=== PATIENT | male | born 1975 | race Caucasian/White ===

== ENCOUNTER 2024-09-15 09:17 | Outpatient (REF) | payer OTHER, SELFPAY ==
--- NOTE | ~2024-09-15 | XR_ITS ---
CLINICAL HISTORY: M54.50 - Low back pain, unspecified 6 views lumbar spine Comparison: None provided Findings: The lumbar fusion hardware appears intact. There is significant disc space narrowing at L5-S1. Mild disc space throughout the remainder of the lumbar spine. No acute fracture or acute malalignment. Mild fecal retention throughout the colon. IMPRESSION: Postsurgical and degenerative changes. No definite acute process. This document has been electronically signed by: Matt Sommers MD on 09/15/2024 11:14:37
== END 2024-09-15 09:18 | disposition home or self-care (01) ==
LOC: HO.HMGCX 09:17
PROVIDERS: PCP Internal Medicine; Visit Provider Physician Assistant
DX: M54.50 Low back pain, unspecified (principal)
CPT/HCPCS: 72110

== ENCOUNTER 2024-09-15 09:17 | Outpatient (AMB) | payer OTHER, SELFPAY ==
--- OUTSIDE RECORDS SUMMARY | 2024-09-15 09:26 | XMS_ITS | Patient Health Record ---
Author Organization [facility] Address [address] [place] [address] Care Team Providers Care Multisensor Intelligence Officer Name Role Phone JoeEmanuel nielson Primary Care Provider [phone] Reason For Referral No Information Problems Problem Type SNOMED Code ICD Code Onset Dates Problem Status W/U Status Risk Notes Problem Ingrowing Nail (703.0) Active confirmed Plan Of Treatment Pending Test Test Name Order Date [id number] Plate 07/31/2012 Insurance Providers Payer Name Payer Address Payer Phone Subscriber Number Group Number Insured Name Patient Relationship to Insured Coverage Start Date Coverage End Date [facility] [id number] TAMI Johnson [id number] [phone] [id number] Lavon Beltran Self - patient is the insured Medical (General) History Surgical History Surgery Date(Month/Year) wrist surgery 03/27/2011
--- NOTE | 2024-09-15 09:33 | MHC.OFFWIV ---
Intake Vital Signs 09/15/24 09:36 Height 6 ft 3.5 in Weight 275 lb BMI 33.9 BP 130/80 Blood Pressure Location Lt brachial Position Sitting Pulse 52 Pulse Source Pulse Oximeter Temp 98 F Temp Source Oral Pulse Oximetry (%) 99 Oxygen Delivery Method Room Air Intake Visit Reasons: DATA ARCHITECT MANAGER Back pain, lower abdominal pain Intake Note: presents with right lower back pain 4 days. Also c/o left lower abdominal pain x1 day Allergies No Known Allergies Allergy (Mild, Verified 09/15/24 09:39) N/A Do you need a note to return to daycare/school/sports/work: Yes Return to daycare/school/sports/work/other note: work HPI HPI Comments History of Present Illness Details Patient is a 49-year-old male with a history of L4-L5 fusion approximately 10 years ago performed by a surgeon who is no longer practicing in this area but was working with Dr. rothman at [facility] at the time. He tells me that 4 days ago, he woke up with some low back pain and he noticed a little bruise in the center of his low back which is tender. He tried taking aspirin for the pain which did not help. He denies any injury or any heavy lifting. 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 He also tells me he has left lower abdominal pain starting and he has a history of diverticulosis and has had a flare of diverticulitis and this is exactly what it felt like when it started. He tells me he waited too long last time to get meds and it was very painful. He denies any fevers or diarrhea. He is asking for medication as it is a holiday weekend and he does not want it to get worse and have to go to the emergency department. Review of Systems Const All systems reviewed & are unremarkable except as noted in HPI and below Physical Exam Vital Signs: Last Vital Signs Temp 98 F 09/15/24 09:36 Pulse 52 09/15/24 09:36 BP 130/80 09/15/24 09:36 Pulse Ox 99 09/15/24 09:36 Oxygen Delivery Method Room Air 09/15/24 09:36 BMI result Body Mass Index 33.9 Const General: cooperative, healthy appearing and comfortable Orientation/consciousness: patient oriented x3 HEENT Head: Yes normal to inspection and Yes normocephalic General nose exam: Normal external nose present Face and sinus: Yes normal facial exam Eyes General: appearance normal, both eyes and all related structures Resp Effort & Inspection: normal respiratory effort and able to speak in complete sentences Back/Spine/Pelvis Cervical Spine: cervical ROM normal and No Cervical spine tenderness Thoracic/Lumbar Spine: thoracic and lumbar spine normal to inspection, No thoracic spinal tenderness and lumbar spinal tenderness at L4 (small/pinpoint area of ecchymosis ) Neuro General: patient oriented x3 Assessment & Plan Assessment & Plan (1) Lumbar pain: Code(s): M54.50 - Low back pain, unspecified Plan: We will get a stat x-ray of the lumbar spine to assess for any hardware that has come loose/is out of place. Patient has Dr Skaggs listed as his PCP however he has never seen her. We will need a referral to Dr. rothman at [facility] if the hardware has come loose (2) Diverticulitis: Code(s): K57.92 - Diverticulitis of intestine, part unspecified, without perforation or abscess without bleeding Plan: As discussed, I have sent a prescription for Augmentin to your pharmacy. Please adhere to a bland diet to make the symptoms more tolerable. If you develop any bloody or black stools or develop any fevers, please go to the emergency department for further evaluation. Orders: Orders XR lumbar spine 4V min Today M54.50 - Low back pain, unspecified Medications: New amoxicillin-pot clavulanate 875-125 mg 1 tab PO Q12H 14 tabs 0RF Coding Level of Care Code Est Pt Level 4 (95535) Diagnoses Lumbar pain M54.50 Diverticulitis K57.92
[2024-09-15 09:36] VITALS: BP 130/80; PULSE 52; TEMP 36.6; O2SAT 99; BMI 33.9
== END 2024-09-15 10:35 | disposition home or self-care (01) ==
PROVIDERS: PCP Internal Medicine; Visit Provider Physician Assistant
DX: M54.50 Low back pain, unspecified (principal); K57.92 Diverticulitis of intestine, part unspecified, without perforation or abscess without bleeding

== ENCOUNTER → 2024-09-15 10:00 | Outpatient (BNV) | payer OTHER, SELFPAY | PROVIDERS: PCP Internal Medicine; Visit Provider Radiology Vascular & Interventional Radiology | DX: M51.362 Other intervertebral disc degeneration, lumbar region with discogenic back pain and lower extremity pain (principal) | CPT/HCPCS: 72110 ==